=== PATIENT | male | born 1990 ===

== ENCOUNTER 2018-03-02 09:25 | Emergency (ER) | payer OTHER ==
[~2018-03-02] VITALS: Ht 152.4 cm; Wt 99.8 kg
[2018-03-02] MEDS ORDERED: CYCLOBENZAPRINE10 MG PO (09:38)
[2018-03-02] MEDS ORDERED: DICLOFENAC SODI50 MG PO (09:38)
[2018-03-02] MEDS ORDERED: TYLENOL EXTRA500 MG PO (11:40)
== END 2018-03-02 15:56 | disposition home or self-care (01) ==
LOC: ER 09:25
DX: M54.5 Low back pain (principal)

== ENCOUNTER 2021-03-08 08:00 | Outpatient (CLI) | payer OTHER ==
[~2021-03-08 08:00] MED LIST: CYCLOBENZAPRINE10 MG PO; DICLOFENAC SODI50 MG PO; TYLENOL EXTRA500 MG PO
== END 2021-03-08 08:30 | disposition home or self-care (01) ==
LOC: PPH VACUNA 08:00
DX: Z23 Encounter for immunization (principal)

== ENCOUNTER 2021-03-29 10:30 | Outpatient (CLI) | payer OTHER | END 2021-03-29 11:00 | disposition home or self-care (01) | LOC: PPH VACUNA 10:30 | PROVIDERS: ATTEND Emergency Medicine Pediatric Emergency Medicine | DX: Z23 Encounter for immunization (principal) ==